=== PATIENT | female | born 1990 | race Caucasian/White ===

== ENCOUNTER 2023-06-07 08:46 | Emergency (ER) | payer SELFPAY ==
[2023-06-07 08:56] VITALS: BP 124/76
--- NOTE | 2023-06-07 09:46 | ED.GENMED ---
History of Present Illness
General
Chief Complaint: Cold/Flu/URI Symptoms
Time Seen by Provider: 06/07/23 09:12
Travel History
Have you had any contact with someone who has COVID-19?: No
Do you have any symptoms of coronavirus? Fever > 100 degrees, chills, cough, shortness of breath, sore throat, loss of taste or smell, muscle aches, or headache?: No
History of Present Illness
History of Present Illness:
32-year-old female with no significant past medical history presents to the emergency department for evaluation of fevers, nasal congestion, coughing, and right ear pain ongoing for the past week. The ear pain has been over the past 3 to 4 days.
Has been taking intermittent Tylenol, ibuprofen, or DayQuil with only modest relief and her son also ill with similar symptoms. Apparently was exposed to COVID-19 approximately week ago.
Review of Systems
Review of Systems
Allergies reviewed?: Yes
All Other Systems: ROS reviewed and negative except as documented in HPI and ROS
Phy Exam
Physical Exam
Physical Exam:
GEN: Well appearing, NAD, WDWN
HEENT: Oral mucosa moist, no scleral icterus. Right tympanic membrane bulging and erythematous with a medial effusion, left tympanic membrane clear
Cardiac: Regular rate and rhythm, no murmurs
Lung: No respiratory distress, no tachypnea, lungs clear to auscultation bilaterally
MSK: No gross deformity or injuries
Skin: Good color, no pallor or jaundice, no rashes
Neuro: AO x3, moves all extremities freely
Psych: Calm, cooperative
Course
Orders/Labs/Results
Orders:
Orders
06/07/23 09:44
COVID-19 Antigen Urgent
Source: Nasal Swab
Influenza A+B Rapid Molecular Urgent
DAVID Source: Nasal Swab
Specimen Description:
Vital Signs
Initial and Last Documented VS:
Initial Vital Signs
Temp Pulse Resp BP Pulse Ox
99.0 F 98 16 124/76 100
06/07/23 08:56 06/07/23 08:56 06/07/23 08:56 06/07/23 08:56 06/07/23 08:56
Last Documented Vital Signs
Temp Pulse Resp BP Pulse Ox
99.0 F 89 16 118/78 98
06/07/23 08:56 06/07/23 10:43 06/07/23 10:43 06/07/23 10:43 06/07/23 10:43
MDM/Problems Addressed
MDM/Problems Addressed:
Patient with a bulging erythematous TM in the setting of viral syndrome. Viral panels are negative, will start empiric antibiotics due to the duration of ear pain
*Critical Care Note
Total Time (30-74mins, 75-104mins- exclusive of procedures): Not Applicable
ED Attending Note
-
Portions of this chart may have been created with voice recognition software.� Occasional wrong word or��sound alike� substitutions may have occurred due to the inherent limitations of voice recognition software.
Discharge Plan
Departure
Patient Disposition: Home (Routine Discharge)
Date of Disposition: 06/07/23
Time of Disposition: 10:34
Patient with high blood pressure during this ER visit?: No
Discharge Problem:
Acute right otitis media
Instructions: Ear Infections (Otitis Media) in Adults (DC)
Prescriptions:
New
amoxicillin 500 mg capsule
500 mg PO BID 10 Days Qty: 20 0RF
Referrals:
UNKNOWN - PT DOES,NOT KNOW [Family Provider] -
Interventions
Interventions:
*Risk Screen - Suicide Last Done: 06/07/23 09:48
*General Assessment Last Done: 06/07/23 09:48
*Neglect/Abuse Screening Last Done: 06/07/23 09:48
ED- Fall Risk Assessment Last Done: 06/07/23 10:43
*ED COVID-19 Vaccine History Last Done: 06/07/23 09:48
*Nursing Disposition Last Done: 06/07/23 10:43
ED- Pulmonary Assessment Last Done: 06/07/23 09:48
Discharge Date and Time
Discharge Date/Time: 06/07/23 10:54
Print Language: [place]
[2023-06-07 10:17] LABS: COVID-19 Antigen Negative (Negative)
[2023-06-07 10:43] VITALS: BP 118/78
== END 2023-06-07 10:54 | disposition home or self-care (01) ==
LOC: EMR 08:46
PROVIDERS: Physician Assistant; EMERGENCY PHYSICIAN Emergency Medicine
DX: H66.91 Otitis media, unspecified, right ear (principal); Z11.52 Encounter for screening for COVID-19
CPT/HCPCS: 99283; 87502; 87811